=== PATIENT | male | born 1935 | race African-American/Black ===

== ENCOUNTER 2017-12-18 10:48 | Observation (INO) ==
[2017-12-18 15:20] LABS: Basophils % 0.1 % (0.0-0.8); Eosinophils # 0.1 10*3/uL (0.0-0.87); Eosinophils % 0.5 % (0.00-10.9); Hematocrit 30.3 VOL% (42.0-52.0); Hemoglobin 9.7 GM/DL (14.0-18.0); Immature Granulocytes % 0.6 %; Immature Granulocytes Absolute 0.06 #; Lymphocytes # 0.5 10*3/uL (1.4-4.0); Lymphocytes % 4.3 % (21.2-54.2); Mean Corpuscular Hemoglobin 32 PG (27-34); Mean Corpuscular Volume 100.3 FL (87-102); Monocytes # 0.6 10*3/uL (0.11-0.8); Monocytes % 5.6 % (1.7-12.7); Neutrophils # 9.6 10*3/uL (1.4-7.4); Neutrophils % 88.9 % (38.7-73.9); Platelet Count 163 T/CUMM (130-400); Red Blood Count 3.02 MC/CUMM (3.8-5.5); Red Cell Distribution Width 13.4 % (9.3-17.3); White Blood Count 10.8 T/CUMM (4-12)
[2017-12-18 15:29] LABS: Albumin 3.9 G/DL (3.4-5.0); Bilirubin,Total 0.7 MG/DL (0.2-1.0); Calcium 9.8 MG/DL (8.5-10.1); Osmolality,Calculated 287.5 MOS/KG (273-304); Potassium 4.8 MMOL/L (3.5-5.1); Total Protein 7.1 G/DL (6.4-8.3)
[2017-12-18 15:30] LABS: Lactic Acid 1.4 MMOL/L (0.4-2.0)
[2017-12-18] MEDS ORDERED: PROMETHAZINE 25 MG/1 ML VIAL IM PRN (16:26)
[2017-12-18] MEDS ORDERED: ONDANSETRON 4 MG/2 ML VIAL IV PRN (16:26)
[2017-12-18] MEDS ORDERED: ACETAMINOPHEN 325 MG TABLET PO PRN (16:26)
[2017-12-18] MEDS ORDERED: SODIUM CHLORIDE 0.9% 250 ML IV STA (16:32)
[2017-12-18 16:39] LABS: Band Neutrophils 1 % (0-10); Lymphocytes 8 % (20-55); Segmented Neutrophils 87 % (50-85); Total Cells Counted 100
[2017-12-18 16:41] LABS: Anisocytosis Slight; Macrocytosis Slight
[2017-12-18 16:46] LABS: Spherocytes Slight
[2017-12-18 16:47] LABS: Platelet Estimate Normal
[2017-12-18 18:15] LABS: Hepatitis A Ab IgM Quant 0.03 Index; Hepatitis A Ab IgM Result Negative (Negative); Hepatitis B Core IgM Quant 0.13 Index; Hepatitis B Core IgM Result Negative (Negative); Hepatitis B Surface Ag Quant < 0.10 Index; Hepatitis B Surface Ag Result Negative (Negative); Hepatitis C Virus Ab Quant 0.09 Index; Hepatitis C Virus Ab Result Negative (Negative)
[2017-12-18] MEDS: DEXTROSE 5% NACL 0.45% 1,000 ML IV SCH (18:34)
[2017-12-19] MEDS ORDERED: LEVOFLOXACIN INJ 250 MG in PREMIX 1 EACH IV SCH (06:00)
[2017-12-19 07:15] LABS: Basophils % 0.3 % (0.0-0.8); Eosinophils # 0.2 10*3/uL (0.0-0.87); Eosinophils % 2.3 % (0.00-10.9); Hematocrit 26.6 VOL% (42.0-52.0); Hemoglobin 8.2 GM/DL (14.0-18.0); Immature Granulocytes % 0.3 %; Immature Granulocytes Absolute 0.02 #; Lymphocytes # 0.6 10*3/uL (1.4-4.0); Lymphocytes % 8.8 % (21.2-54.2); Mean Corpuscular HGB Conc 30.8 GM/DL (32-36); Mean Corpuscular Hemoglobin 31 PG (27-34); Mean Corpuscular Volume 101.5 FL (87-102); Mean Platelet Volume 12.1 FL (9.6-12.0); Monocytes # 0.4 10*3/uL (0.11-0.8); Monocytes % 6.1 % (1.7-12.7); Neutrophils # 5.6 10*3/uL (1.4-7.4); Neutrophils % 82.2 % (38.7-73.9); Platelet Count 135 T/CUMM (130-400); Red Blood Count 2.62 MC/CUMM (3.8-5.5); Red Cell Distribution Width 13.7 % (9.3-17.3); White Blood Count 6.9 T/CUMM (4-12)
[2017-12-19 07:42] LABS: Albumin 3.2 G/DL (3.4-5.0); Bilirubin,Total 0.9 MG/DL (0.2-1.0); Calcium 9.3 MG/DL (8.5-10.1); Osmolality,Calculated 292.5 MOS/KG (273-304); Potassium 4.5 MMOL/L (3.5-5.1); Total Protein 6.5 G/DL (6.4-8.3)
[2017-12-19] MEDS: PANTOPRAZOLE 40 MG VIAL IV SCH (08:59)
[2017-12-20 07:30] VITALS: BP 144/47
[2017-12-20] MEDS: PANTOPRAZOLE 40 MG VIAL IV SCH (08:51)
[2017-12-20] MEDS: DEXTROSE 5% NACL 0.45% 1,000 ML IV SCH (09:16)
== END 2017-12-20 14:35 | disposition home or self-care (01) ==
LOC: N.ED 10:48 → N.EDINP 10:48 → N.2E 17:52
PROVIDERS: ADMIT Family Medicine; ATTEND Family Medicine

== ENCOUNTER 2019-01-27 08:11 | Observation (INO) ==
[2019-01-27 08:39] LABS: Basophils % 0.4 % (0.0-0.8); Eosinophils # 0.2 10*3/uL (0.0-0.87); Eosinophils % 2.3 % (0.00-10.9); Hematocrit 34.4 VOL% (42.0-52.0); Immature Granulocytes % 0.5 %; Immature Granulocytes Absolute 0.05 #; Lymphocytes # 0.5 10*3/uL (1.4-4.0); Lymphocytes % 5.3 % (21.2-54.2); Mean Corpuscular Volume 99.1 FL (87-102); Mean Platelet Volume 11.7 FL (9.6-12.0); Monocytes % 5.9 % (1.7-12.7); Neutrophils % 85.6 % (38.7-73.9); Platelet Count 193 T/CUMM (130-400); Red Blood Count 3.47 MC/CUMM (3.8-5.5); White Blood Count 10.3 T/CUMM (4-12)
[2019-01-27 09:01] LABS: Albumin 3.8 G/DL (3.4-5.0); Bilirubin,Total 1.1 MG/DL (0.2-1.0); Calcium 8.3 MG/DL (8.5-10.1); Osmolality,Calculated 303.3 MOS/KG (273-304); Total Protein 7.3 G/DL (6.4-8.3)
[2019-01-27 10:56] LABS: INR 1.1; PT Patient Result 12.4 SECS (9.6-12.2)
[2019-01-27] MEDS ORDERED: DOCUSATE SODIUM 100 MG CAPSULE PO PRN (12:52)
[2019-01-27] MEDS ORDERED: guaiFENesin/DM ER 600-30 MG TABLET PO PRN (12:52)
[2019-01-27] MEDS ORDERED: LEVOFLOXACIN INJ 250 MG in PREMIX 1 EACH IV SCH (18:00)
[2019-01-28 04:44] LABS: Basophils % 0.4 % (0.0-0.8); Eosinophils # 0.3 10*3/uL (0.0-0.87); Eosinophils % 3.5 % (0.00-10.9); Hematocrit 32.9 VOL% (42.0-52.0); Hemoglobin 10.6 GM/DL (14.0-18.0); Immature Granulocytes % 0.4 %; Immature Granulocytes Absolute 0.03 #; Lymphocytes # 0.6 10*3/uL (1.4-4.0); Lymphocytes % 7.7 % (21.2-54.2); Mean Corpuscular HGB Conc 32.2 GM/DL (32-36); Mean Corpuscular Volume 98.2 FL (87-102); Mean Platelet Volume 12.6 FL (9.6-12.0); Monocytes % 8.3 % (1.7-12.7); Neutrophils % 79.7 % (38.7-73.9); Platelet Count 175 T/CUMM (130-400); Red Blood Count 3.35 MC/CUMM (3.8-5.5); Red Cell Distribution Width 14.6 % (9.3-17.3); White Blood Count 7.5 T/CUMM (4-12)
[2019-01-28 05:12] LABS: Albumin 3.4 G/DL (3.4-5.0); Osmolality,Calculated 288.4 MOS/KG (273-304); Risk Ratio 4.37; Thyroid Stimulating Hormone 5.38 uIU/ml (0.358-3.74); Total Protein 6.6 G/DL (6.4-8.3); VLDL CHOLESTEROL 17.8 MG/DL
[2019-01-28] MEDS ORDERED: traMADol 50 MG TABLET PO PRN (07:20)
[2019-01-28] MEDS ORDERED: NF- (Sucroferric Oxyhydroxide [Velphoro] 500 MG) PO SCH (07:30)
[2019-01-28] MEDS: LOSARTAN 50 MG TABLET PO SCH ×2 (08:49→20:23)
[2019-01-28] MEDS: amLODIPine 5 MG TABLET PO SCH (08:49)
[2019-01-28] MEDS: ASPIRIN EC 81 MG TABLET PO SCH (08:49)
[2019-01-28] MEDS: PANTOPRAZOLE 40 MG TABLET PO SCH (08:49)
[2019-01-28] MEDS: LEVOTHYROXINE 150 MCG TABLET PO SCH (08:49)
[2019-01-28] MEDS: APIXABAN 2.5 MG TABLET PO SCH ×2 (08:49→20:23)
[2019-01-29] MEDS ORDERED: MEPERIDINE 50 MG/1 ML VIAL IM ONE (07:30)
[2019-01-29] MEDS ORDERED: PROMETHAZINE 25 MG/1 ML VIAL IM ONE (07:30)
[2019-01-29] MEDS ORDERED: LIDOCAINE 2% VISCOUS 100 ML BOTTLE SWISH/SPIT ONE (08:00)
[2019-01-29] MEDS ORDERED: MIDAZOLAM 2 MG/2 ML VIAL IV ONE (08:00)
[2019-01-29] MEDS ORDERED: LIDOCAINE 2% 20 ML VIAL RESP TX ONE (08:00)
[2019-01-29] MEDS ORDERED: LIDOCAINE 1% 20 ML VIAL MISC INJ ONE (08:00)
[2019-01-29] MEDS ORDERED: MIDAZOLAM 2 MG/2 ML VIAL ONE (09:18)
[2019-01-29] MEDS: APIXABAN 2.5 MG TABLET PO SCH (10:36)
[2019-01-29] MEDS: LEVOTHYROXINE 150 MCG TABLET PO SCH (10:48)
[2019-01-29] MEDS: ASPIRIN EC 81 MG TABLET PO SCH (10:48)
[2019-01-29] MEDS: PANTOPRAZOLE 40 MG TABLET PO SCH (10:48)
[2019-01-29] MEDS: LOSARTAN 50 MG TABLET PO SCH (14:46)
[2019-01-29] MEDS: amLODIPine 5 MG TABLET PO SCH (14:46)
[2019-01-29 14:48] VITALS: BP 161/49
[2019-01-30 23:51] LABS: Specimen Source SPUTUM
== END 2019-01-29 15:59 | disposition home or self-care (01) ==
LOC: N.ED 08:11 → N.EDINP 08:11 → N.2W 16:50
PROVIDERS: ADMIT Family Medicine; ATTEND Family Medicine

== ENCOUNTER 2020-01-24 09:06 | Observation (INO) ==
[2020-01-24 09:38] LABS: Basophils % 0.2 % (0.0-0.8); Eosinophils # 0.2 10*3/uL (0.0-0.87); Eosinophils % 1.6 % (0.00-10.9); Hematocrit 27.5 VOL% (42.0-52.0); Hemoglobin 9.2 GM/DL (14.0-18.0); Immature Granulocytes % 0.4 %; Immature Granulocytes Absolute 0.04 #; Lymphocytes # 0.5 10*3/uL (1.4-4.0); Lymphocytes % 5.2 % (21.2-54.2); Mean Corpuscular HGB Conc 33.5 GM/DL (32-36); Mean Corpuscular Volume 99.3 FL (87-102); Mean Platelet Volume 12.1 FL (9.6-12.0); Monocytes % 5.2 % (1.7-12.7); Neutrophils % 87.4 % (38.7-73.9); Platelet Count 184 T/CUMM (130-400); Red Blood Count 2.77 MC/CUMM (3.8-5.5); Red Cell Distribution Width 13.7 % (9.3-17.3); White Blood Count 10.4 T/CUMM (4-12)
[2020-01-24 10:01] LABS: INR 1.2; PT Patient Result 12.4 SECS (9.8-11.9)
[2020-01-24 10:39] LABS: Calcium 9.5 MG/DL (8.5-10.1); Osmolality,Calculated 288.4 MOS/KG (273-304)
[2020-01-24] MEDS ORDERED: ACETAMINOPHEN 325 MG TABLET PO PRN (14:01)
[2020-01-24] MEDS ORDERED: ONDANSETRON 4 MG/2 ML VIAL IV PRN (14:01)
[2020-01-24] MEDS ORDERED: traMADol 50 MG TABLET PO PRN (14:03)
[2020-01-24] MEDS ORDERED: BISACODYL 5 MG TABLET PO PRN (14:04)
[2020-01-24] MEDS ORDERED: hydrALAZINE 20 MG/1 ML VIAL IV PRN (16:35)
[2020-01-24] MEDS: cefTRIAXone 1,000 MG in SYRINGE 1 EACH IV SCH (17:23)
[2020-01-24] MEDS: NON-FORMULARY MEDICATION (Sucroferric Oxyhydroxide [Velphoro] 500 mg tablet,chewable) PO SCH (17:25)
[2020-01-24] MEDS ORDERED: APIXABAN 2.5 MG TABLET PO SCH (21:00)
[2020-01-24] MEDS ORDERED: cloNIDine 0.1 MG/24 HR PATCH TRANSDERM SCH (21:00)
[2020-01-24] MEDS: DOCUSATE SODIUM 100 MG CAPSULE PO SCH (21:12)
[2020-01-24] MEDS: LOSARTAN 50 MG TABLET PO SCH (21:18)
[2020-01-25] MEDS: LEVOTHYROXINE 150 MCG TABLET PO SCH (06:12)
[2020-01-25 06:30] LABS: Basophils % 0.4 % (0.0-0.8); Eosinophils # 0.1 10*3/uL (0.0-0.87); Eosinophils % 1.7 % (0.00-10.9); Hematocrit 25.3 VOL% (42.0-52.0); Hemoglobin 8.4 GM/DL (14.0-18.0); Immature Granulocytes % 0.5 %; Immature Granulocytes Absolute 0.04 #; Lymphocytes # 0.5 10*3/uL (1.4-4.0); Lymphocytes % 6.5 % (21.2-54.2); Mean Corpuscular HGB Conc 33.2 GM/DL (32-36); Mean Corpuscular Volume 98.1 FL (87-102); Mean Platelet Volume 12.3 FL (9.6-12.0); Monocytes % 6.2 % (1.7-12.7); Neutrophils % 84.7 % (38.7-73.9); Platelet Count 159 T/CUMM (130-400); Red Blood Count 2.58 MC/CUMM (3.8-5.5); Red Cell Distribution Width 13.6 % (9.3-17.3)
[2020-01-25] MEDS ORDERED: APIXABAN 2.5 MG TABLET PO SCH (09:00)
[2020-01-25] MEDS ORDERED: PANTOPRAZOLE 40 MG TABLET PO SCH (09:00)
[2020-01-25] MEDS: NON-FORMULARY MEDICATION (Sucroferric Oxyhydroxide [Velphoro] 500 mg tablet,chewable) PO SCH ×3 (09:16→16:03)
[2020-01-25] MEDS: amLODIPine 5 MG TABLET PO SCH (09:24)
[2020-01-25] MEDS: DOCUSATE SODIUM 100 MG CAPSULE PO SCH ×2 (09:24→20:54)
[2020-01-25] MEDS: ASPIRIN EC 81 MG TABLET PO SCH (09:24)
[2020-01-25] MEDS: LOSARTAN 50 MG TABLET PO SCH ×2 (09:24→20:55)
[2020-01-25] MEDS: PANTOPRAZOLE 40 MG TABLET PO SCH (09:24)
[2020-01-25] MEDS: METOPROLOL TARTRATE 50 MG TABLET PO SCH ×2 (11:45→20:55)
[2020-01-25] MEDS: cefTRIAXone 1,000 MG in SYRINGE 1 EACH IV SCH (20:58)
[2020-01-25] MEDS ORDERED: ROSUVASTATIN 20 MG TABLET PO SCH (21:00)
[2020-01-26] MEDS: LEVOTHYROXINE 150 MCG TABLET PO SCH (06:03)
[2020-01-26] MEDS: NON-FORMULARY MEDICATION (Sucroferric Oxyhydroxide [Velphoro] 500 mg tablet,chewable) PO SCH ×2 (07:15→10:30)
[2020-01-26] MEDS: PANTOPRAZOLE 40 MG TABLET PO SCH (08:38)
[2020-01-26] MEDS: DOCUSATE SODIUM 100 MG CAPSULE PO SCH (08:38)
[2020-01-26] MEDS: LOSARTAN 50 MG TABLET PO SCH (08:38)
[2020-01-26] MEDS: METOPROLOL TARTRATE 50 MG TABLET PO SCH (08:38)
[2020-01-26] MEDS: ASPIRIN EC 81 MG TABLET PO SCH (08:38)
[2020-01-26] MEDS: amLODIPine 5 MG TABLET PO SCH (08:38)
[2020-01-26 11:48] VITALS: BP 149/43
== END 2020-01-26 13:51 | disposition home or self-care (01) ==
LOC: N.ED 09:06 → INTOOBSV 14:01 → N.EDINP 14:01 → N.5E 16:16
PROVIDERS: ADMIT Family Medicine; ATTEND Family Medicine